=== PATIENT | male | born 1945 | race Caucasian/White ===

== ENCOUNTER → 2023-10-15 10:52 | Outpatient (REF) | payer MEDICARE, SELFPAY | LOC: RCS 10:52 | PROVIDERS: ATTENDING PHYSICIAN Internal Medicine Cardiovascular Disease; FAMILY PHYSICIAN Family Medicine | DX: R55 Syncope and collapse (principal) | CPT/HCPCS: 93225; 93226 ==

== ENCOUNTER 2024-02-24 22:58 | Inpatient (IN) | payer MEDICARE, SELFPAY ==
[2024-02-24] VITALS (36 sets, daily range): BP systolic 86–132; BP diastolic 41–76; BMI 22.6; BMI 22.7
[2024-02-24 20:27] LABS: % Basophils 0.3 % (0-2); % Eosinophils 0.9 % (0-6); % Immature Granulocytes 0.3 % (0-0.5); % Lymphocytes 16.1 % (20.5-51.1); % Monocytes 7.1 % (1.7-9.3); % Neutrophils 75.3 % (42.2-75.2); Absolute Eosinophils 0.1 10^3/uL (0-0.7); Absolute Lymphocytes 1.9 10^3/uL (1.2-3.4); Absolute Monocytes 0.8 10^3/uL (0.1-0.6); Absolute Neutrophils 8.7 10^3/uL (1.4-6.5); Hematocrit 38.4 % (39.0-52.0); Mean Corp Hgb Conc. 36.5 g/dL (33.0-37.0); Mean Corpuscular Hgb 32.9 pg (27.0-31.0); Mean Corpuscular Volume 90.1 fL (80.0-94.0); Mean Platelet Volume 10.5 fL (7.4-10.4); Nucleated Red Blood Cells % 0 % (-); Platelet Count 202 10^3/uL (130-400); Red Blood Cell Count 4.26 10^6/uL (4.70-6.10); Red Cell Dist. Width 12.3 % (11.5-14.5); White Blood Cell Count 11.6 10^3/uL (4.8-10.8)
[2024-02-24 20:42] LABS: ALT (SGPT) 22 U/L (0-50); AST (SGOT) 33 U/L (17-59); Albumin 4.5 g/dl (3.5-5.0); Alkaline Phosphatase 72 U/L (38-126); Blood Urea Nitrogen 25 mg/dl (9-20); Calcium 9.5 mg/dl (8.4-10.2); Carbon Dioxide 27 mmol/L (22-30); Chloride 105 mmol/L (98-107); Glucose 116 mg/dl (70-99); Sodium 139 mmol/L (135-145); Total Protein 6.8 g/dl (6.3-8.2); eGFR > 60.00
--- NOTE | 2024-02-24 20:46 | ED.GENMED ---
History of Present Illness
<SIS Cherry - Last Filed: 02/24/24 21:37>
General
Chief Complaint: Fainting Sensation
Source: patient
Exam Limitations: none
Time Seen by Provider: 02/24/24 20:24
Nursing documentation reviewed up to this point in time: agreed with
History of Present Illness
History of Present Illness:
Patient is an 78-year-old male who presents to the ER for evaluation. He reports since 6 PM he has had intermittent episodes where he feels faint and gets a very hot sensation. He does feel his heart race at the end of each episode. He denies any
associated chest pain shortness of breath. Does have a history of cardiac stent and is only on aspirin presently. He is presently followed by Dr. Spence. He is on no other medications for his heart or blood pressure.
Review of Systems
<SIS Cherry - Last Filed: 02/24/24 21:37>
Review of Systems
Allergies reviewed?: Yes
All Other Systems: ROS reviewed and negative except as documented in HPI and ROS
Constitutional: Reports no symptoms; Denies fever, fatigue or chills
EENT: Reports no symptoms
Respiratory: Reports no symptoms
Cardiac: Reports palpitations and other (Patient feels lightheaded)
ABD/GI: Reports no symptoms
Musculoskeletal: Reports no symptoms
Skin: Reports no symptoms
Neurological: Reports no symptoms
Psychiatric: Reports no symptoms
Phy Exam
<SIS Cherry - Last Filed: 02/24/24 21:37>
General Physical Exam
General Presentation: no apparent distress
General age: appears stated age
General Skin: warm and dry
General Habitus: normal
General Mental: alert
General Hydration: appears well hydrated
Cardiovascular Exam
Cardiovascular Exam: tachycardia
Pulmonary Exam
Pulmonary Exam: lungs clear and no respiratory distress
Neurological Exam
Neurological Exam: alert and oriented x3
Musculoskeletal Exam
Musculoskeletal Exam: full ROM
Skin Exam
Skin Exam: normal color and warm/dry
Psychiatric Exam
Psychiatric Exam: normal mood/affect
Course
<SIS Cherry - Last Filed: 02/24/24 21:37>
Orders/Labs/Results
Orders:
Orders
02/24/24 20:09
Electrocardiogram (*1) Urgent
Reason for Study: Chest Pain
EKG- Treatment ONCE
02/24/24 20:20
Comprehensive Metabolic Panel Urgent
Troponin I Urgent
02/24/24 20:21
Complete Blood Count/With Diff Urgent
02/24/24 20:34
EKG [Electrocardiogram (*1)] Urgent
Reason for Study: Tachycardia
EKG- Treatment ONCE
02/24/24 20:41
Metoprolol [Lopressor] 5 mg .ROUTE .STK-MED ONE
02/24/24 21:28
Metoprolol [Lopressor] 2.5 mg IV NOW STA
Abnormal Lab Results
02/24/24 02/24/24
20:20 20:21
WBC 11.6 H 10^3/uL
(4.8-10.8)
RBC 4.26 L 10^6/uL
(4.70-6.10)
Hct 38.4 L %
(39.0-52.0)
MCH 32.9 H pg
(27.0-31.0)
MPV 10.5 H fL
(7.4-10.4)
Absolute Neuts (auto) 8.7 H 10^3/uL
(1.4-6.5)
Absolute Monos (auto) 0.8 H 10^3/uL
(0.1-0.6)
Neutrophils % 75.3 H %
(42.2-75.2)
Lymphocytes % 16.1 L %
(20.5-51.1)
BUN 25 H mg/dl
(9-20)
Glucose 116 H mg/dl
(70-99)
02/24/24 20:21
02/24/24 20:20
Vital Signs
Initial and Last Documented VS:
Initial Vital Signs
Temp Pulse Resp BP Pulse Ox
98 F 123 16 111/76 99
02/24/24 20:10 02/24/24 20:10 02/24/24 20:10 02/24/24 20:10 02/24/24 20:10
Last Documented Vital Signs
Temp Pulse Resp BP Pulse Ox
98 F 99 13 89/62 95
02/24/24 20:10 02/24/24 21:00 02/24/24 21:00 02/24/24 20:55 02/24/24 21:00
Manager Title consulted with Physician
Manager Title consulted with physician?: Yes
Name of Physician Consulted: Dr Whitaker
<Wilbur Whitaker, DO - Last Filed: 02/24/24 21:42>
Orders/Labs/Results
Orders:
Orders
02/24/24 20:09
Electrocardiogram (*1) Urgent
Reason for Study: Chest Pain
EKG- Treatment ONCE
02/24/24 20:20
Comprehensive Metabolic Panel Urgent
Troponin I Urgent
02/24/24 20:21
Complete Blood Count/With Diff Urgent
02/24/24 20:34
EKG [Electrocardiogram (*1)] Urgent
Reason for Study: Tachycardia
EKG- Treatment ONCE
02/24/24 20:41
Metoprolol [Lopressor] 5 mg .ROUTE .STK-MED ONE
02/24/24 21:28
Metoprolol [Lopressor] 2.5 mg IV NOW STA
Abnormal Lab Results
02/24/24 02/24/24
20:20 20:21
WBC 11.6 H 10^3/uL
(4.8-10.8)
RBC 4.26 L 10^6/uL
(4.70-6.10)
Hct 38.4 L %
(39.0-52.0)
MCH 32.9 H pg
(27.0-31.0)
MPV 10.5 H fL
(7.4-10.4)
Absolute Neuts (auto) 8.7 H 10^3/uL
(1.4-6.5)
Absolute Monos (auto) 0.8 H 10^3/uL
(0.1-0.6)
Neutrophils % 75.3 H %
(42.2-75.2)
Lymphocytes % 16.1 L %
(20.5-51.1)
BUN 25 H mg/dl
(9-20)
Glucose 116 H mg/dl
(70-99)
02/24/24 20:21
02/24/24 20:20
Vital Signs
Initial and Last Documented VS:
Initial Vital Signs
Temp Pulse Resp BP Pulse Ox
98 F 123 16 111/76 99
02/24/24 20:10 02/24/24 20:10 02/24/24 20:10 02/24/24 20:10 02/24/24 20:10
Last Documented Vital Signs
Temp Pulse Resp BP Pulse Ox
98 F 99 13 89/62 95
02/24/24 20:10 02/24/24 21:00 02/24/24 21:00 02/24/24 20:55 02/24/24 21:00
<SIS Cherry - Last Filed: 02/24/24 21:37>
MDM/Problems Addressed
Differential Diagnosis Includes:
Not limited to atrial tachycardia, A-fib, arrhythmia SVT, dehydration electrolyte abnormality
MDM/Problems Addressed:
Patient is an 78-year-old male with history of cardiac stent presents to the ER with intermittent episodes of feeling lightheaded sweaty and palpitations. Upon presentation to the ED treatment area patient was found to be in a very brief episode of
tachycardia. He has been having intermittent episodes of narrow complex tachycardia correspond to patient's symptoms.ED physician at bedside. Patient's blood pressure is stable but on the lower side. Case reviewed with Dr. Anders who was able to
visualize EKG and rhythm strip on [place] text. Will hydrate he does feel that this is more of an atrial tachycardia will attempt to give Lopressor 2.5 mg IV once hydrated.
2129:BP 100 /67 hr 100 jared. Pt received 1l NSS will given small 2.5 mg lopressor now. will require admission for continued monitoring. 2135 d/c case w/ admitting hospitalist
<SIS Cherry - Last Filed: 02/24/24 21:37>
*Pulse Oximetry
Patient hypoxic: no
*EKG
Heart Rate: 109
Rate: tachycardiac
Rhythm: sinus
Ischemia: non-specific ST changes
*Critical Care Note
Total Time (30-74mins, 75-104mins- exclusive of procedures): Not Applicable
<SIS Cherry - Last Filed: 02/24/24 21:37>
Patient Management
Discussion with other providers: Pharmaceutical Plant Operator (cardiology DR Anders )
ED Attending Note
<SIS Cherry - Last Filed: 02/24/24 21:37>
-
Portions of this chart may have been created with voice recognition software.� Occasional wrong word or��sound alike� substitutions may have occurred due to the inherent limitations of voice recognition software.
<Wilbur Whitaker, DO - Last Filed: 02/24/24 21:42>
ED Attending Note
Patient seen and examined by attending physician: Yes
I performed the substantive portion of visit, reviewed & personally made and approve the management plan that is documented in note by myself or ADAM.: Yes
I performed a history and physical exam of patient and discussed management with resident, I reviewed resident's note and agree with documented findings and plan of care.: Yes
ED Attending Note:
I evaluated patient at bedside. The patient has intermittent runs of atrial tachycardia. Blood pressure borderline low and was given IV fluids with intermittent boluses of beta-lorin.
Discharge Plan
Departure
Patient Disposition: Admit
Date of Disposition: 02/24/24
Time of Disposition: 21:34
Admit to: Telemetry
Admit to doctor: hospitalist
Presentation/result/management discussed w/ accepting MD/DO: Hospitalist
Patient with high blood pressure during this ER visit?: No
Condition: Fair
Covid-19: Not Applicable
Discharge Problem:
Atrial tachycardia
Prescriptions:
No Action
aspirin 81 MG tablet,delayed release (DR/EC)
81 mg PO DAILY
Ala-Javan Cream
PRN (Reason: irritation)
Ketoconazole
topical DAILY
cetirizine 10 MG tablet
10 mg PO DAILY
multivitamin with folic acid [Tab-A-Harleen] 1 TABLET tablet
1 tab PO DAILY
cholecalciferol (vitamin D3) 2,000 UNITS tablet
2,000 units PO DAILY
ascorbic acid (vitamin C) [Vitamin C] 500 MG tablet
500 mg PO DAILY
Super Probiotic Capsule
3 tab PO DAILY
Vitamin B Complex
1 tab PO DAILY
atorvastatin 80 MG tablet
80 mg PO QPM Qty: 90 5RF
clopidogrel 75 MG tablet
75 mg PO DAILY Qty: 90 5RF
metoprolol succinate 25 MG tablet extended release 24 hr
25 mg PO DAILY Qty: 90 5RF
Interventions
Interventions:
*Risk Screen - Suicide Last Done: 02/24/24 20:11
*General Assessment Last Done: 02/24/24 20:53
*Neglect/Abuse Screening Last Done: 02/24/24 20:11
*ED COVID-19 Vaccine History Last Done: 02/24/24 20:53
ED- Cardiac Assessment Last Done: 02/24/24 20:54
ED- Neurological Assessment Last Done: 02/24/24 20:54
Discharge Date and Time
Print Language: PORTUGUESE
[2024-02-24 20:50] LABS: Troponin I < 0.012 ng/ml
[2024-02-24] MEDS: LOPRESSOR 2.5 MG IV (21:41)
--- NOTE | 2024-02-24 22:21 | HPS.HSE ---
Family Physician
-
Family Physician: Pam Ordoñez
Chief Complaint
-
episodes of palpitation and feel like fainting
History of Present Illness
HPI
78M Significant PMHx of CAD s/p PTCA stented Lt Ant descending artery, NSTEMI seen at ER for evalaution of lightheadedness, presyncope and almost fainting and diaphoretic associated with racing heart.
Not on any medications for his heart or HTN
P [facility] Card/ Dr. Spence.
@ER:
- Received 1l NSS plus IV 2.5 mg Lopressor
ROS:
Denies chest pain
Denies shortness of breath.
Medical History
Past Medical History
Past Medical History: Reports Other
Additional Past Medical History:
1. Non ST-elevation myocardial infarction with a peak troponin of
177 at [facility].
2. Status post successful percutaneous coronary intervention to
the left anterior descending using 3.5 x 23 mm Xience drug-
eluting stent.
3. Hyperlipidemia.
4. Arthritis.
5. Basal cell cancer of the scalp, status post excision in 2011.
6. Rosacea.
7. Allergic rhinitis.
8. Lyme disease in 2016, treated and resolved.
9. Vitamin D deficiency.
Past Surgical History: Reports Cardiac (Status post successful percutaneous coronary intervention to the left anterior descending using 3.5 x 23 mm Xience drug- eluting stent.)
Social History
Tobacco: Non-smoker
Alcohol: None
Drug: None
Family History
Family History: Not pertinent
Allergies / Home Medications
Allergies reflects when Allergies were last updated in [facility].
Home Medications with original date entered in [facility]
Allergy/Medication List:
Allergies
Allergy/AdvReac Type Severity Reaction Status Date / Time
erythromycin base Allergy Unknown Verified 03/18/21 17:41
Penicillins Allergy Hives Verified 03/18/21 17:41
Home Medications
Ala-Javan PRN irritation 03/18/21
Ketoconazole topical DAILY 03/18/21
Super Probiotic Capsule 3 tab PO DAILY 03/18/21
Vitamin B Complex 1 tab PO DAILY 03/18/21
ascorbic acid (vitamin C) 500 mg tablet (Vitamin C) 500 mg PO DAILY 03/18/21
aspirin 81 mg tablet,delayed release 81 mg PO DAILY 03/18/21
cetirizine 10 mg tablet 10 mg PO DAILY 03/18/21
cholecalciferol (vitamin D3) 50 mcg (2,000 unit) tablet 2,000 units PO DAILY 03/18/21
multivitamin with folic acid 400 mcg tablet (Tab-A-Harleen) 1 tab PO DAILY 03/18/21
atorvastatin 80 mg tablet 80 mg PO QPM #90 tabs 03/19/21
clopidogrel 75 mg tablet 75 mg PO DAILY #90 tabs 03/19/21
metoprolol succinate 25 mg tablet,extended release 24 hr 25 mg PO DAILY #90 tabs 03/19/21
If Other, explain: pending
Review of Systems
-
Constitutional: Reports No Symptoms
EENT: Reports No Symptoms
Respiratory: Reports No Symptoms
Cardiac: Reports See HPI, Diaphoresis, Palpitations and Other (presyncope )
Abdomen/GI: Reports No Symptoms
: Reports No Symptoms
Musculoskeletal: Reports No Symptoms
Skin: Reports No Symptoms
Neurological: Reports No Symptoms
Endocrine: Reports No Symptoms
Hematologic/Lymphatic: Reports No Symptoms
Psych: Reports No Symptoms
Physical Exam
Vital Signs
Vital Signs
Temp Pulse Resp BP Pulse Ox
98 F 87 12 95/53 95
02/24/24 20:10 02/24/24 22:00 02/24/24 22:00 02/24/24 21:55 02/24/24 22:00
Physical Exam
General: No Apparent Distress, Comfortable and Conversant; No Respiratory Distress
HEENT: NormoCephalic, Anicteric and Moist mucous membranes
Respiratory: Clear; No Wheezes, Rales or Rhonchi
Cardiac: S1/S2, Regular Rhythm, Tachycardia and Other (hypotension )
Breast: Deferred by me
GI: Soft, Non Tender, Non Distended and Normal Bowel Sounds
Rectal: Deferred by Provider
Genito-urinary: Deferred by me
Musculoskeletal: No Edema
Skin: Warm
Neuro: AO x 3
Psych: Calm
Laboratory Results
-
02/24/24 20:21
02/24/24 20:20
Laboratory Results
Total Bilirubin 1.0 mg/dl (0.2-1.3) 02/24/24 20:20
AST 33 U/L (17-59) 02/24/24 20:20
ALT 22 U/L (0-50) 02/24/24 20:20
Alkaline Phosphatase 72 U/L (38-126) 02/24/24 20:20
Troponin I < 0.012 ng/ml 02/24/24 20:20
Data Reviewed
-
Medical Tests (Nuc Med, Echo, EKG etc): Report Reviewed by me
Lab Data: Labs Reviewed by me
Impression/Plan
-
Reviewed VS: afebrile BP 90/60 HR 93 RR 15 POx 95
Data
WCC 11.6
BUN 25
Cr 1.1
eGFR > 60
NEG TPNI
EK02/24/24 & 2033 H
ATRIAL FIBRILLATION WITH RAPID VENTRICULAR RESPONSE
LOW VOLTAGE QRS
NONSPECIFIC ST AND T WAVE ABNORMALITY
ABNORMAL ECG
WHEN COMPARED WITH ECG OF 24-FEB-2024 20:13,
ATRIAL FIBRILLATION HAS REPLACED SINUS RHYTHM
T WAVE INVERSION NOW EVIDENT IN INFERIOR LEADS
EKG : 02/24/24 & 2008
SINUS TACHYCARDIA
LOW VOLTAGE QRS
NONSPECIFIC ST ABNORMALITY
ABNORMAL ECG
WHEN COMPARED WITH ECG OF 19-MAR-2021 05:13,
VENT. RATE HAS INCREASED BY 46 BPM
03/23/23 TTE
Normal left ventricular size, wall thickness and systolic function.
Normal diastolic function.
No regional wall motion abnormalities are seen.
Mild left atrial enlargement.
Mild mitral regurgitation.
Compared to an outside echocardiogram report dated 03/17/2021 there previously described inferior wall motion abnormality is no longer appreciated. Mild right ventricular enlargement was noted on the prior study.
NO prior hospitalist admission:
ASSESSMENT & PLAN
Pending Rx reconciliation
Symptomatic atrial arrhythmia suspect AT with VR as high as 220 for brief seconds
- Associated presyncope
- Hypotensive s/p 1 L NS at ER
- IV Lopressor 2.5mg PRN times 2
- Cont metoprolol succinate 25 mg BID with hold index
- Fall precaution due to symptomatic hypotension
- [facility] card consulted
HX LAD CAD s/p VINAY stent
HX NSTEMI
Hyperlipidemia.
- cont BARGE PILOT Meds after reconciliation
Known HX: In active
Arthritis.
Basal cell cancer of the scalp, status post excision in 2011.
Rosacea.
Allergic rhinitis.
Lyme disease in 2016, treated and resolved.
Vitamin D deficiency.
DVT Px: LMWH
Code: Full
IP TLM
--- NOTE | 2024-02-24 23:45 | PTCARENOTE ---
Addendum entered by Tl Karimi RN 02/25/24 04:24:
Pt reports that he no longer takes plavix 75mg or metoprolol 25mg at home.
Original Note:
Pt arrived to unit from ED and ambulated independently from stretcher to bed. VS stable, no complaints of pain, AAOx3, pt oriented to room and call kelley within reach.
[2024-02-24] MEDS: NSS 1000 IV (23:47)
[2024-02-25 03:21] VITALS: BP 119/64
[2024-02-25 06:00] VITALS: BMI 22.8
--- NOTE | 2024-02-25 06:38 | PTCARENOTE ---
Pt reports that he no longer takes atorvastatin 80mg and only receives Praluent pen injections every 2 weeks.
[2024-02-25 07:00] VITALS: BP 107/67
[2024-02-25] MEDS: TOPROL XL PO ×2 (08:53→20:00)
--- NOTE | 2024-02-25 09:49 | CON.CAR ---
Addendum entered and electronically signed by Lakhwinder Whatley MD 02/25/24 15:10:
Attending addendum:
Primary maintenance mechanic technician: Dr. Rogelio Spence who is scheduled to see him as a new patient on 05/10/2024 (patient's follows with Dr. Spence)
patient seen and examined. PA note reviewed and findings independently confirmed by me. Briefly, this is an 78-year-old gentleman with remote history of coronary artery disease and LAD stenting by Dr. Gaytan in March 2021. At that time he
presented with chest tightness and burning. He has subsequently been followed by Dr. Andreas Rodas and is planning to switch to [facility] where his receives most of her cardiac care. He does have a prior history of
near syncope. He underwent 24-hour Holter monitoring and experienced 3 very brief runs of an atrial tachycardia lasting up to 6 beats. The patient reports that he has been in his normal state of health and has actually been physically quite
active. He was working in the yard doing block work yesterday with no chest pain. He had been sitting at his kitchen table and experienced presyncopal symptoms. He stood and symptoms worsen. He sat down and the symptoms gradually passed. Later
in the day he experienced another episode when he was in the [employer] watering plants with transient imaging of his vision before resolution. At this point he sought further medical attention in the emergency department at [facility]. An
electrocardiogram on 02/24/2024 at 20:37 was notable for a short run of an atrial tachycardia with heart rates over 200 bpm. A cardiology consult has been requested. He was given IV Lopressor in the emergency department and states that that
immediately made him feel better.
GEN: AAO x 3. No acute distress. Patient is seen sitting in a bedside chair. He is awake, and conversant. Pleasant and with no acute complaints
HEENT: NC/AT, sclera are anicteric, hearing and nares are normal. MMM
NECK: Supple. Normal JVP
LUNGS: Clear to bases bilaterally. No wheezing or rhonchi
CV: Regular rate and rhythm. Normal S1/S2. No S3, No S4. Murmur: None
ABD : Soft, NT, Bowel sounds are present.
EXT: No CCE
NEURO: No focal neurologic deficits
EC02/24/2024 at 20:37:45: Sinus rhythm with short runs of AVNRT lasting up to 16 beats at 220 bpm
RECOMMENDATIONS:
-Will start AV jase blocking agent Toprol XL 25 mg bid with first dose now
-Encouraged IV hydration
-Will obtain echocardiogram today
-Will plan on outpatient monitoring x 2 weeks to assess for recurrence and correlation of symptoms to rhythm
-We will work to move an appointment sooner either with Dr. Spence or with one of our PA's.
-I have asked Mr. Jacob to monitor HR and BP at home and bring machine and readings to next office visit.
-Could consider EP evaluation for recurring symptoms.
-Hydrate, hydrate, hydrate!!!
Original Note:
Consultation
Consultation Request
Date/Time Consultation Requested: 02/25/2024
Date/Time Consultation Performed: 02/25/2024
Requesting Provider: Dr. Brand
Performing Provider: Dr. Whatley
Reason for Consultation: Near syncope, atrial tachycardia
Medical History
-
History of Present Illness:
HPI: Vikram is an 78-year-old male with past medical history of CAD with LAD PCI, hyperlipidemia, arthritis, and rosacea. He presented to ER for evaluation of multiple episodes of near syncope. Around 6 PM, while eating dinner he felt faint and
diaphoretic with heart racing. He has a history of episodic lightheadedness that was related to hypotension. He had prior episodes similar to this a few months ago, however workup at the time was reassuring and his symptoms resolved. Given
multiple episodes in quick succession, he came to ER for evaluation. In ER, he was noted to have multiple episodes of atrial tachycardia, all short-lived. Atrial tachycardia correlated with his symptoms. Troponin negative x 1. Workup otherwise
has been unremarkable. He is feeling well this morning, however blood pressures remain low. He is receiving IV fluids. Cardiology consulted given atrial tachycardia and near syncope.
PMH:
CAD
h/o NSTEMI w/ LAD PCI 03/18/2021
HLD
Arthritis
Rosacea
Past Medical History
Past Medical History: Other (In HPI)
Past Surgical History: Cardiac (LAD PCI 03/2021)
Social History
Tobacco: Non-Smoker
Alcohol: None
Drug: None
Personal:
Living: With Family
Employment: Retired
Family History
Family History: Reviewed & Not Pertinent
Allergies / Home Medications
Allergy/AdvReac Type Severity Reaction Status Date / Time
erythromycin base Allergy Unknown Verified 03/18/21 17:41
Penicillins Allergy Hives Verified 03/18/21 17:41
�Medication �Instructions �Recorded �Confirmed �Type
Ala-Javan PRN irritation 03/18/21 History
Ketoconazole topical DAILY PRN Agent orange 03/18/21 History
skin condition
Super Probiotic Capsule 4 tab PO DAILY Supplement 03/18/21 02/25/24 History
Vitamin B Complex 1 tab PO DAILY Supplement 03/18/21 02/25/24 History
ascorbic acid (vitamin C) 500 mg 500 mg PO DAILY Supplement 03/18/21 02/25/24 History
tablet (Vitamin C)
aspirin 81 mg tablet,delayed 81 mg PO DAILY Blood Clot 03/18/21 02/24/24 History
release Prevention/Tx
cetirizine 10 mg tablet 10 mg PO DAILY allergies 03/18/21 02/24/24 History
cholecalciferol (vitamin D3) 50 2,000 units PO DAILY Supplement 03/18/21 02/25/24 History
mcg (2,000 unit) tablet
multivitamin with folic acid 400 1 tab PO DAILY Supplement 03/18/21 02/25/24 History
mcg tablet (Tab-A-Harleen)
alirocumab 75 mg/mL subcutaneous 75 mg SC Q2W High Cholesterol 02/24/24 02/24/24 History
pen injector (Praluent Pen)
coenzyme Q10 100 mg capsule 100 mg PO DAILY Supplement 02/24/24 02/25/24 History
(CoQ-10)
meloxicam 15 mg tablet 15 mg PO DAILY PRN Back pain 02/24/24 02/25/24 History
nystatin 100,000 unit/gram topical 1 applic topical DAILY PRN skin 02/24/24 02/25/24 History
cream condition
tacrolimus 0.1 % topical ointment 1 applic topical Daily PRN Agent 02/24/24 02/25/24 History
orange skin inflammation
Review of Systems
-
History Source: Patient
All other systems: Negative unless noted
Physical Exam
Vital Signs
Temp Pulse Resp BP Pulse Ox
98.1 F 63 18 107/67 98
02/25/24 07:00 02/25/24 08:53 02/25/24 07:00 02/25/24 08:53 02/25/24 07:00
Lab Results
Troponin I < 0.012 ng/ml 02/24/24 20:20
Physical Exam
General: Well Developed, Well Nourished and No Apparent Distress
HEENT: Normocephalic, Anicteric and Moist Mucous Membranes
Respiratory: Clear and Non Labored Respirations
Cardiac: S1/S2 and Regular Rhythm
Musculoskeletal: No Clubbing, No Cyanosis and No Edema
Skin: Warm and Dry
Neuro: AO x 3 and Nonfocal/Grossly Intact
Psych: Calm
Impression / Plan
-
PCP: Dr. Connie Ordoñez
Cardiology: Dr. Spence
Impression:
Presented with near syncope
Atrial tachycardia
Hypotension
CAD
h/o NSTEMI w/ LAD PCI 03/18/2021
HLD
Arthritis
Rosacea
Echo 03/23/2023: EF 60 to 65%, mild MR, mild TR, estimated PAP 27 mmHg
Echo 02/25/2024: Study pending
Holter monitor 10/15/2023: Sinus rhythm with average heart rate 75 bpm. 1% PAC burden, 3 brief atrial runs with the longest at 6 beats.
Plan:
-Presented with near syncope. Hypotensive on arrival. Continue IV fluids. Blood pressure improving
-Noted to have brief runs of atrial tachycardia while in ER. 1 episode caught on EKG. Symptoms appear to correlate with atrial tachycardia
-Telemetry reviewed overnight. Remains in sinus rhythm. No further episodes of atrial tachycardia noted.
-Previously on beta-lorin, however reports this was discontinued approximately 6 months after his IA. Outpatient note states this was due to fatigue.
-Given symptomatic atrial tachycardia, would recommend starting beta-lorin for rate control. Will need to use caution given hypotension.
-Start Toprol 25 mg daily.
-Echo 03/2023 with preserved ejection fraction and mild valvular disease. Will repeat.
-Would plan on 2 week outpatient monitor at discharge. May consider LINQ if monitor unremarkable.
-K stable.
-TSH pending
-Troponin negative x 1. Denies any chest pain.
HPI: Vikram is an 78-year-old male with past medical history of CAD with LAD PCI, hyperlipidemia, arthritis, and rosacea. He presented to ER for evaluation of multiple episodes of near syncope. Around 6 PM, while eating dinner he felt faint and
diaphoretic with heart racing. He has a history of episodic lightheadedness that was related to hypotension. He had prior episodes similar to this a few months ago, however workup at the time was reassuring and his symptoms resolved. Given
multiple episodes in quick succession, he came to ER for evaluation. In ER, he was noted to have multiple episodes of atrial tachycardia, all short-lived. Atrial tachycardia correlated with his symptoms. Troponin negative x 1. Workup otherwise
has been unremarkable. He is feeling well this morning, however blood pressures remain low. He is receiving IV fluids. Cardiology consulted given atrial tachycardia and near syncope.
Data Reviewed
-
EKG: Tracing Personally Visualized and interpreted
Labs: Labs Reviewed by me
Old Records: Reviewed
[2024-02-25 09:56] LABS: Hematocrit 39.6 % (39.0-52.0); Hemoglobin 13.8 g/dL (13.0-18.0); Mean Corp Hgb Conc. 34.8 g/dL (33.0-37.0); Mean Corpuscular Hgb 32.3 pg (27.0-31.0); Mean Corpuscular Volume 92.7 fL (80.0-94.0); Mean Platelet Volume 10.8 fL (7.4-10.4); Platelet Count 178 10^3/uL (130-400); Red Blood Cell Count 4.27 10^6/uL (4.70-6.10); Red Cell Dist. Width 12.5 % (11.5-14.5); White Blood Cell Count 12.5 10^3/uL (4.8-10.8)
[2024-02-25 10:28] LABS: Blood Urea Nitrogen 19 mg/dl (9-20); Calcium 8.8 mg/dl (8.4-10.2); Carbon Dioxide 25 mmol/L (22-30); Chloride 109 mmol/L (98-107); Estimated Creatinine Clearance 75 ml/min; Glucose 85 mg/dl (70-99); Sodium 140 mmol/L (135-145); eGFR > 60.00
[2024-02-25 11:00] VITALS: BP 105/60
[2024-02-25 11:24] VITALS: BMI 22.8
[2024-02-25] MEDS: NSS 1000 IV (12:26)
--- NOTE | 2024-02-25 12:32 | CM ---
manager inpatient reviewed patient's chart and met with patient and patient lives with his spouse in a one story home with 4 steps to enter, patient is independent with adl's and ambulation, no dme.
PCP: Dr. Ordoñez
Pharmacy: [facility]
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 IMM completed and placed on chart.
--- NOTE | 2024-02-25 13:05 | W.PN.HOSP.TC ---
Addendum entered and electronically signed by Edwin Schmitt MD 02/25/24 15:56:
Syncope likely related to atrial tachycardia that was noted on EKG.
started on toprol with holding parameter
monitor on tele
check 2d echo
tsh 1.43
Cad s/p pci to lad
continue asa. started on bb
Original Note:
Today's Communication/Plan
-
Cardiology consult, echocardiogram pending.
Continue metoprolol for rate control.
Monitor on telemetry.
Assessment / Plan
Assessment / Plan
Assessment- 78-year-old male with PMHx significant for CAD s/p PCI (LAD), NSTEMI with elevated troponin at 177 in the past, presents to the ER for evaluation of palpitations, lightheadedness, near syncope, and diaphoresis.-Diagnosed with atrial
tachycardia.
Plan-
Symptomatic atrial tachycardia-
Upon admission has rapid ventricular rate as high as 220 for few seconds.
Presented with near syncope.
Hypotensive upon arrival to the ER s/p 1 L NS at the ER.
IV Lopressor-2.5 mg as needed did not require any dose overnight.
Currently on metoprolol succinate 25 Mg twice daily with holding parameters.
Fall precautions can be held.
Cardiology consulted, appreciate inputs, consult pending
Echo results pending.
CAD-
S/p PCI-LAD
NSTEMI in the past.
Currently troponins not elevated, echo pending.
Currently on aspirin. Not on any hypertensive medications.
Hyperlipidemia
History of statin induced myopathy
On our look some and coenzyme every 10 supplementation.
DVT prophylaxis-
On Lovenox.
CODE STATUS-full code.
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
Arthritis
Basal cell cancer
Rosacea
Allergic rhinitis
Lyme's disease, 2016, resolved
Vitamin D deficiency.
Anticipated Discharge: Within 24 hours
Subjective/Interval History
-
Date of Service: February 25, 2024
Patient reports to be feeling better
Denies having chest pain, shortness of breath, nausea, vomiting, lightheadedness, dizziness, palpitations, syncopal episodes overnight.
Objective Data
-
Labs:
Laboratory Results
02/25/24
09:27
WBC 12.5 H
Hgb 13.8
Hct 39.6
Plt Count 178
Sodium 140
Potassium 4.0
Chloride 109 H
Carbon Dioxide 25
BUN 19
Creatinine 0.8
Glucose 85
Calcium 8.8
Vital Signs:
Vital Signs
Temp Pulse Resp BP Pulse Ox
98.4 F 74 18 105/60 97
02/25/24 11:00 02/25/24 11:00 02/25/24 11:00 02/25/24 11:00 02/25/24 11:00
I&O
02/24/24 02/25/24 02/26/24
06:59 06:59 06:59
Intake Total 500 / 500
Output Total 400 / 400
Balance 100 / 100
Review of Systems
-
History Source: Patient
Constitutional: Reports No Symptoms
Respiratory: Reports No Symptoms
Cardiac: Reports No Symptoms
Abdomen/GI: Reports No Symptoms
Genitourinary: Reports No Symptoms
Musculoskeletal: Reports No Symptoms
Skin: Reports No Symptoms
Neuro: Reports No Symptoms
Endocrine: Reports No Symptoms
Physical Exam
-
General: No Apparent Distress and Comfortable (on room air.)
HEENT: Normocephalic, Atraumatic and Moist Mucous Membranes
Respiratory: Clear to Auscultation; Negative Wheezes, Rales or Rhonchi
Cardiac: Regular Rhythm and S1/S2; Negative Murmur, Rub or Gallop
GI: Soft, Nontender, Nondistended and Normal Bowel Sounds
Musculoskeletal: No Clubbing, No Cyanosis and No Edema
Neuro: Alert, AO x 3 and Other (normal strength, tone and reflexes.)
Psych: Calm
Data Reviewed
-
CT Scan: Image personally visualized and interpreted
Ultrasound: Report Reviewed by me
MRI: Report Reviewed by me
Medical Tests (Nuc Med, Echo etc): Report Reviewed by me
Labs: Labs Reviewed by me
[2024-02-25 15:00] VITALS: BP 112/69
[2024-02-25 15:44] LABS: TSH 1.43 uIU/ml (0.47-4.68)
[2024-02-25] MEDS: TOPROL XL 25 MG PO (16:01)
[2024-02-25] MEDS: LIPITOR 80 MG PO (17:04)
[2024-02-25] MEDS: LOVENOX 40 MG SC (17:05)
[2024-02-25 19:15] VITALS: BP 110/58
[2024-02-25 23:20] VITALS: BP 102/58
[2024-02-26] MEDS: NSS 1000 IV (01:34)
[2024-02-26 03:10] VITALS: BP 99/63
[2024-02-26 05:40] VITALS: BMI 22.6
[2024-02-26 07:11] VITALS: BP 103/62
[2024-02-26] MEDS: TOPROL XL 25 MG PO (09:10)
[2024-02-26] MEDS: TOPROL XL PO (09:10)
[2024-02-26 11:27] VITALS: BP 102/57
--- NOTE | 2024-02-26 11:50 | W.PN.HOSP.TC ---
Today's Communication/Plan
-
Plan for discharge today
Assessment / Plan
Assessment / Plan
Assessment- 78-year-old male with PMHx significant for CAD s/p PCI (LAD), NSTEMI with elevated troponin at 177 in the past, presents to the ER for evaluation of palpitations, lightheadedness, near syncope, and diaphoresis.-Diagnosed with atrial
tachycardia.
Plan-
Symptomatic atrial tachycardia-
Upon admission has rapid ventricular rate as high as 220 for few seconds.
Presented with near syncope.
Hypotensive upon arrival to the ER s/p 1 L NS at the ER.
IV Lopressor-2.5 mg as needed did not require any dose overnight.
Currently on metoprolol succinate 25 Mg twice daily with holding parameters.
Fall precautions can be held.
Cardiology consulted, appreciate inputs, plan for discharge today and follow in outpatient within 2 weeks.
Echo results within normal limits.
CAD-
S/p PCI-LAD
NSTEMI in the past.
Currently troponins not elevated, echo pending.
Currently on aspirin. Not on any hypertensive medications.
Hyperlipidemia
History of statin induced myopathy
On our look some and coenzyme every 10 supplementation.
DVT prophylaxis-
On Lovenox.
CODE STATUS-full code.
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
Arthritis
Basal cell cancer
Rosacea
Allergic rhinitis
Lyme's disease, 2016, resolved
Vitamin D deficiency.
Data reviewed -
Telemetry-02/26/2024-1 episode of atrial tachycardia for few seconds at about 9 AM.
Echocardiogram-02/25/2024
Normal left ventricular size, wall thickness and systolic function.
LV ejection fraction is 60-65% by Robles's method of discs.
Normal right ventricular systolic function.
Trace mitral regurgitation.
Mild tricuspid regurgitation.
Estimated pulmonary artery pressure of 28 mmHg assuming a right atrial pressure
of 3 mmHg.
Pulmonic valve is grossly normal but poorly visualized.
Normal pericardium without effusion.
The IVC is of normal size and demonstrates normal respiratory variation.
Anticipated Discharge: Today
Subjective/Interval History
-
Date of Service: February 26, 2024
No complaints overnight, patient tends to be stable until a.m. today.
Blood pressure at 102/57. Trending a little soft in the a.m. today
Patient had 1 episode of atrial tachycardia at 9 AM. That subsided after taking his oral Toprol.
Overall patient states that he does not have palpitations or chest pain
Objective Data
-
Vital Signs:
Vital Signs
Temp Pulse Resp BP Pulse Ox
97.9 F 64 16 102/57 97
02/26/24 11:27 02/26/24 11:27 02/26/24 11:27 02/26/24 11:27 02/26/24 11:27
I&O
02/25/24 02/26/24 02/27/24
06:59 06:59 06:59
Intake Total 500 / 500 1700 / 1700
Output Total 400 / 400
Balance 100 / 100 1700 / 1700
Review of Systems
-
History Source: Patient
Constitutional: Reports No Symptoms
Respiratory: Reports No Symptoms
Cardiac: Reports No Symptoms
Abdomen/GI: Reports No Symptoms
Genitourinary: Reports No Symptoms
Musculoskeletal: Reports No Symptoms
Neuro: Reports No Symptoms
Hematologic / Lymphatic: Reports No Symptoms
Physical Exam
-
General: Well Nourished and No Apparent Distress
HEENT: Normocephalic, Atraumatic and Moist Mucous Membranes
Respiratory: Clear to Auscultation; Negative Wheezes, Rales or Rhonchi
Cardiac: Regular Rhythm and S1/S2; Negative Murmur, Rub or Gallop
GI: Soft, Nontender, Nondistended and Normal Bowel Sounds
Musculoskeletal: No Clubbing, No Cyanosis and No Edema
Neuro: AO x 3 and No Motor Deficits
Psych: Calm
Data Reviewed
-
MRI: Report Reviewed by me
Medical Tests (Nuc Med, Echo etc): Report Reviewed by me
Labs: Labs Reviewed by me and Discussed with Physician
--- NOTE | 2024-02-26 13:31 | W.DCSUMMARY ---
Discharge Summary
Discharge Data
Date of Admission: 02/24/24
Date of Discharge: 02/26/24
-
Pending Results: No
Hospital Course
Admission diagnosis-
Atrial tachycardia
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
NSTEMI with elevated troponins-1 to 2 years ago.
Hyperlipidemia
Arthritis
Basal cell carcinoma of skin
Rosacea
Allergic rhinitis
Lyme's disease, 2016, resolved
Vitamin D deficiency
Hospital course-during patient's 2-day hospital course, patient was diagnosed with atrial tachycardia, kept on telemetry, given a single dose of IV Lopressor, and IVF resuscitation for hypotension in the emergency room which converted the patient to
sinus rhythm and cardiology was consulted. Cardiology adjusted his metoprolol to Toprol-XL 25 twice daily, and an echocardiogram was obtained at to assess his structural and functional status. His troponins and proBNP were not elevated and this
admission. After assuring that patient is stable, discharged patient today on Toprol-XL 25 twice daily and patient is advised to follow-up with cardiology within 2 weeks of the hospital discharge based on cardiology recommendations
Data from hospital admission-
Echocardiogram-02/25/2024
Normal left ventricular size, wall thickness and systolic function.
LV ejection fraction is 60-65% by Robles's method of discs.
Normal right ventricular systolic function.
Trace mitral regurgitation.
Mild tricuspid regurgitation.
Estimated pulmonary artery pressure of 28 mmHg assuming a right atrial pressure
of 3 mmHg.
Pulmonic valve is grossly normal but poorly visualized.
Normal pericardium without effusion.
The IVC is of normal size and demonstrates normal respiratory variation.
Discharge Plan
-
Patient Disposition: Home (Routine Discharge)
Discharge Diagnosis/Procedures: Atrial Tachycardia
Diet: As tolerated
Activity: No restrictions
Driving Restrictions: As prior to admission
Bathing Restrictions: None
Referrals:
Rogelio Spence, DO [Active] - (2 weeks)
Pam Ordoñez MD [Family Provider] -
Additional Discharge Medication Instructions: Follow up with Cardiology on outpatient basis within 2 weeks.
Prescriptions:
New
atorvastatin 80 mg Tablet
80 mg PO QPM 30 Days Qty: 30 2RF
metoprolol succinate 25 mg Tablet Extended Release 24 Hr
25 mg PO BID 30 Days Qty: 60 2RF
Continued
aspirin 81 MG tablet,delayed release (DR/EC)
81 mg PO DAILY
Ala-Javan Cream
PRN (Reason: irritation)
Ketoconazole
topical DAILY PRN (Reason: Agent orange skin condition)
cetirizine 10 MG tablet
10 mg PO DAILY
multivitamin with folic acid [Tab-A-Harleen] 1 TABLET tablet
1 tab PO DAILY
cholecalciferol (vitamin D3) 2,000 UNITS tablet
2,000 units PO DAILY
ascorbic acid (vitamin C) [Vitamin C] 500 MG tablet
500 mg PO DAILY
Super Probiotic Capsule
4 tab PO DAILY
Vitamin B Complex
1 tab PO DAILY
meloxicam 15 mg Tablet
15 mg PO DAILY PRN (Reason: Back pain)
Patient Comments:
Pt hasn't taken in 2-3 weeks
tacrolimus 0.1 % Ointment
1 applic TOPICAL Daily PRN (Reason: Agent orange skin inflammation)
nystatin 100,000 unit/gram Cream
1 applic TOPICAL DAILY PRN (Reason: skin condition)
coenzyme Q10 [CoQ-10] 100 mg Capsule
100 mg PO DAILY
Praluent Pen 75 mg/mL Pen Injector
75 mg SC Q2W
Discharge Orders:
Discharge Patient (As Directed); Ordered 02/26/24
Ordered By: Lori Mcgarry
Discharge Date and Time
Discharge Date/Time: 02/26/24 12:51
Print Language: DIVEHI
== END 2024-02-26 12:51 | disposition home or self-care (01) | DRG 310 ==
LOC: 4 WEST ACU 22:58
PROVIDERS: Emergency Medicine; Student in an Organized Health Care Education/Training Program; ADMITTING PHYSICIAN Internal Medicine; ATTENDING PHYSICIAN Hospitalist; CONSULT PHYSICIAN Internal Medicine Cardiovascular Disease; EMERGENCY PHYSICIAN Emergency Medicine; FAMILY PHYSICIAN Family Medicine
DX: I47.19 Other supraventricular tachycardia (principal); I25.10 Atherosclerotic heart disease of native coronary artery without angina pectoris; E78.00 Pure hypercholesterolemia, unspecified; E55.9 Vitamin D deficiency, unspecified; R79.89 Other specified abnormal findings of blood chemistry; I25.2 Old myocardial infarction; Z95.5 Presence of coronary angioplasty implant and graft
CPT/HCPCS: 80048; 80053; 84443; 84484; 85025; 85027; 93005; 93306; 96374; 99285